=== PATIENT | male | born 2005 | race Caucasian/White ===

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

== ENCOUNTER 2023-06-22 10:22 | Emergency (ER) | payer OTHER, SELFPAY ==
[2023-06-22 10:30] VITALS: BP 138/83; PULSE 69; RESP 20; TEMP 36.8; O2SAT 99
--- NOTE | 2023-06-22 10:53 | ED.URI ---
HPI - URI/Sore Throat General Chief Complaint: Skin/Abscess/Foreign Body Stated Complaint: Throat/rash Time Seen by Provider: 06/22/23 10:45 Source: patient, RN notes reviewed and old records reviewed Mode of arrival: ambulatory Limitations: no limitations History of Present Illness HPI Narrative: 17 year old male presents to [facility] care with complaints of 3 day history of nasal congestion and drainage which is yellow, cough which is frequent with sore throat and noted today rash on his bilateral arms and on upper right neck and on his right cheek with a small area on right upper chest which he reports is not itchy.Patient denies any new body products or any new foods.limited outdoor activity. Patient reports that he has taken some Mucinex and a few of left over antibiotic that his mother had. MD elicited complaint: cough, sore throat, rhinorrhea, nasal congestion and other (red patchy rash reports not itchy) Onset (ago): day(s) (3) Pain scale (0-10): 3 Description of mucous: yellow Able to tolerate fluids by mouth: Yes Treatments prior to arrival: other (Mucinex and some left over antibiotic of his mom's, and cough drops) Related Data Allergies Allergy/AdvReac Type Severity Reaction Status Date / Time No Known Allergies Allergy Verified 07/28/22 11:37 Review of Systems Review of Systems: CONSTITUTIONAL:reports malaise, chills, sweats, unknown if fever. EYES: Denies visual changes, redness, or discharge. ENT: Reports rhinorrhea, congestion, sinus pain, no otalgia and positive sore throat. CARDIOVASCULAR: Denies chest pain, palpitations, or edema. RESPIRATORY: Reports cough.? Denies dyspnea. GASTROINTESTINAL: Denies abdominal pain, nausea, vomiting, diarrhea SKIN: REports rash no itching. MUSCULOSKELETAL: Denies myalgia. NEUROLOGIC: Denies headache. All systems reviewed & are unremarkable except as noted in HPI and below PMFSH Past Medical History Medical History Conjunctivitis History of hearing problem Surgical History Surgical History No pertinent past surgical history Family History Family History Mother Family history non-contributory Social History Social History Smoking status: Current every day smoker Tobacco type: e-cigarettes/vaping Substance use: never Living arrangements: with family Gender identity (if verbalized by the patient): Male Sexual Orientation (if Verbalized by the Patient): Straight or Heterosexual Spiritual care concerns: No Comments At time of signature, agree with nursing past medical, surgical, social and family history. There is no relevant family history pertinent to the presenting complaint Exam Narrative: GENERAL: Well-appearing, well-nourished, and in no acute distress. HEAD: Normocephalic EYES: PERRLA, conjunctivae clear ENT: Nares clear, turbinates edematous and erythematous, yellow discharge. Mucous membranes moist. TM pearly mann with dull light reflex bilaterally; no tragal tenderness. Oropharynx erythematous without lesions. Tonsils red enlarged and without exudate, no drooling, no hoarseness, no trismus, uvula midline.post nasal drainage noted NECK: Supple. No lymphadenopathy CHEST: Clear to auscultation, breath sounds equal. No wheezing, rhonchi, rales, or stridor. No respiratory distress, speaks in full sentences.cough at times productive, SAO2 99% on room air HEART: Regular rate and rhythm. No murmur heard. SKIN: Warm, dry, Patches of red rash noted on bilateral arm some on neck and right cheek reports is spreading reports no itching, no vesicles noted is pink and red minimally raised rash NEURO: Alert and oriented x3. PSYCH: Normal mood and affect Course Course Emergency Course: Patient is clau
== END 2023-06-22 11:25 | disposition home or self-care (01) ==
PROVIDERS: Emergency Provider Registered Nurse
DX: J06.9 Acute upper respiratory infection, unspecified (principal); L25.9 Unspecified contact dermatitis, unspecified cause; R05.9 Cough, unspecified; J02.9 Acute pharyngitis, unspecified; F17.290 Nicotine dependence, other tobacco product, uncomplicated
CPT/HCPCS: 87081; 87880; 99213; G0463